=== PATIENT | female | born 1960 | race Caucasian/White ===

== ENCOUNTER 2020-03-25 08:26 | Outpatient (REF) | payer OTHER, SELFPAY ==
--- NOTE | 2020-03-25 09:20 | XR_ITS ---
EXAMINATION: XR BILATERAL KNEES XR LEFT KNEE CLINICAL INFORMATION: Pain left knee. COMPARISON: 07/31/2019, 03/20/2019. TECHNIQUE: AP bilateral knees one view. Left knee one view. FINDINGS: Left Knee: Left total knee arthroplasty is stable in position and alignment. No suspicious perihardware lucency or fracture. Small effusion. Right Knee: Mild medial compartment joint space narrowing. Spurring in the lateral compartment. No acute findings. IMPRESSION: Left total knee arthroplasty with stable position and alignment. Small effusion.
== END 2020-03-25 08:27 | disposition home or self-care (01) ==
LOC: HO.XRAY 08:26
PROVIDERS: PCP Internal Medicine; Referring Provider Internal Medicine; Visit Provider Orthopaedic Surgery
DX: M25.562 Pain in left knee (principal); M25.561 Pain in right knee
CPT/HCPCS: 73560; 73565